=== PATIENT | male | born 1975 | race Caucasian/White ===

== ENCOUNTER 2018-12-24 10:10 | Inpatient (IN) | payer OTHER, MEDICAID ==
[~2018-12-24] VITALS: Ht 165.1 cm; Wt 65.8 kg
[2018-12-24 11:05] LABS: HEMOGLOBIN. 10.4 g/dL (14.0-18.0); MEAN CORPUSCULAR HEMOGLOBIN 31.2 pg (28.0-32.0); MEAN CORPUSCULAR VOLUME 90.4 fL (80.0-94.0); PLATELET 669 x1000/uL (130-400); RED BLOOD CELL COUNT 3.32 mill/uL (4.7-6.1); RED CELL DISTRIBUTION WIDTH 12.9 % (11.6-14.6)
[2018-12-24 11:10] LABS: CHLORIDE 86 mEq/L (98-107)
[2018-12-24 11:11] LABS: INR 1.2; PARTIAL THROMBOPLASTIN TIME 33.8 sec (23.4-31.0); PROTHROMBIN TIME 11.9 sec (9.6-11.0)
[2018-12-24] MEDS ORDERED: MORPHINE SULFATE 4 MG/ML CPJ (NOT FOR IM USE) IV STA (11:14)
[2018-12-24] MEDS ORDERED: ONDANSETRON HCL 4MG/2ML INJ IV STA (11:14)
[2018-12-24] MEDS ORDERED: ASPIRIN 81MG TABLET PO ONE (11:15)
[2018-12-24] MEDS ORDERED: NITROGLYCERIN OINT 1GM/INCH UDPKT TD ONE (11:15)
[2018-12-24] MEDS ORDERED: FUROSEMIDE 40MG/4ML VIAL IV ONE (11:15)
[2018-12-24] MEDS ORDERED: INSULIN REGULAR (HUMULIN R) 300UNITS/3ML IV ONE (11:15)
[2018-12-24] MEDS ORDERED: SODIUM CHLORIDE 0.9% 1,000 ML IV ONE (11:32)
[2018-12-24] MEDS ORDERED: ALBUMIN HUMAN 25GM/100ML (25%) IV ONE (11:45)
[2018-12-24] MEDS ORDERED: VANCOMYCIN 1 G PREMIX 200 ML IV SCH (11:45)
[2018-12-24] MEDS: SODIUM CHLORIDE 0.9% 1,000 ML IV SCH ×2 (11:49→21:17)
[2018-12-24 11:58] LABS: PLATELET ESTIMATE INCREASED
[2018-12-24] MEDS ORDERED: MAGNESIUM/ALUMINUM HYDROXIDE/SIMETHICONE 30ML UDC PO PRN (12:00)
[2018-12-24] MEDS ORDERED: DEXTROSE 50% WATER 50ML SYRINGE IV PRN (12:00)
[2018-12-24] MEDS ORDERED: ONDANSETRON HCL 4MG/2ML INJ IV PRN (12:00)
[2018-12-24] MEDS ORDERED: CLONIDINE 0.1MG TABLET PO PRN (12:00)
[2018-12-24] MEDS ORDERED: GUAIFENESIN 200MG/10ML SUGAR FREE UDC PO PRN (12:00)
[2018-12-24] MEDS ORDERED: IPRATROPIUM/ALBUTEROL 0.5-3(2.5)MG/3ML NEB INH PRN (12:00)
[2018-12-24 12:04] LABS: CLARITY URINE CLEAR (CLEAR); COLOR URINE YELLOW (YELLOW); KETONES URINE 2+ (NEGATIVE); LEUKOCYTE ESTERASE URINE NEGATIVE (NEGATIVE); NITRITE URINE NEGATIVE (NEGATIVE); OCCULT BLOOD URINE NEGATIVE (NEGATIVE); PH URINE 6.5 (4.5-8.0); PROTEIN URINE NEGATIVE (NEGATIVE); SPECIFIC GRAVITY URINE 1.013 (1.005-1.030); UROBILINOGEN URINE 0.2 E.U./dL (0.2-1.0)
[2018-12-24 12:09] LABS: ETHANOL BLOOD < 10 mg/dL
[2018-12-24 12:15] LABS: *BARBITURATES SCREEN URINE NEGATIVE (NEGATIVE)
[2018-12-24 12:16] LABS: T4 FREE 1.08 ng/dL (0.76-1.46)
[2018-12-24 12:16] LABS: *AMPHETAMINES SCREEN URINE NEGATIVE (NEGATIVE); *BENZODIAZEPINES SCREEN URINE NEGATIVE (NEGATIVE); *COCAINE SCREEN URINE NEGATIVE (NEGATIVE); METHADONE URINE SCREEN NEGATIVE (NEGATIVE); OPIATES URINE SCREEN NEGATIVE (NEGATIVE)
[2018-12-24 12:17] LABS: CANNABINOID URINE SCREEN NEGATIVE (NEGATIVE); PHENCYCLIDINE URINE SCREEN NEGATIVE (NEGATIVE)
[2018-12-24] MEDS ORDERED: POTASSIUM CHLORIDE 20MEQ TABLET SR PO SCH (12:30)
[2018-12-24 12:41] LABS: VITAMIN B12 SERUM > 2000.0 pg/mL (211-911)
[2018-12-24 16:22] LABS: SODIUM URINE RANDOM 6 mEq/L
[2018-12-24 16:39] LABS: CREATINE KINASE 228 IU/L (39-308)
[2018-12-24 16:40] LABS: CREATINE KINASE MB FRACTION 1.5 ng/mL (0.5-3.6)
[2018-12-24] MEDS ORDERED: ENOXAPARIN 40MG/0.4ML SYR SUBCUT NR (17:15)
[2018-12-24 20:00] VITALS: BP_SYST 106; BP_SYST 109; BP_DIAS 61; BP_DIAS 66
[2018-12-24] MEDS: INSULIN LISPRO 100 UNITS/ML SUBCUT SCH (21:35)
[2018-12-24] MEDS: BLOOD SUGAR DIAGNOSTIC STRIP TEST SCH (21:36)
[2018-12-24] MEDS ORDERED: CLINDAMYCIN 600 MG in DEXTROSE 5% WATER 50 ML IV SCH (22:00)
[2018-12-24] MEDS ORDERED: INSULIN GLARGINE UD 100 UNITS/ML SYR SUBCUT SCH (22:00)
[2018-12-24] MEDS: ACETAMINOPHEN 325MG TABLET PO PRN (23:30)
[2018-12-24] MEDS: CLINDAMYCIN 600MG PREMIX 50 ML IV SCH (23:31)
[2018-12-25] VITALS (7 sets, daily range): BP systolic 92–136; BP diastolic 56–80
[2018-12-25 01:00] LABS: CREATINE KINASE 155 IU/L (39-308)
[2018-12-25 01:01] LABS: CREATINE KINASE MB FRACTION < 1.0 ng/mL (0.5-3.6)
[2018-12-25] MEDS ORDERED: GLIP5TAB12 MT (01:09)
[2018-12-25] MEDS ORDERED: TRAM50TA MT (01:15)
[2018-12-25] MEDS ORDERED: METF-416 MT (01:15)
[2018-12-25] MEDS ORDERED: IBUP-2030 MT (01:15)
[2018-12-25] MEDS ORDERED: BACL-141 PO (01:15)
[2018-12-25 06:27] LABS: HEMATOCRIT. 28.5 % (42.0-52.0); HEMOGLOBIN. 9.7 g/dL (14.0-18.0); MEAN CORPUSCULAR HEMOGLOBIN 30.6 pg (28.0-32.0); MEAN PLATELET VOLUME 6.4 fl (7.4-10.4); PLATELET 688 x1000/uL (130-400); RED BLOOD CELL COUNT 3.17 mill/uL (4.7-6.1); RED CELL DISTRIBUTION WIDTH 13.3 % (11.6-14.6)
[2018-12-25 06:47] LABS: CHLORIDE 96 mEq/L (98-107)
[2018-12-25 06:52] LABS: PHOSPHORUS 2.1 mg/dL (2.5-4.9)
[2018-12-25] MEDS: BLOOD SUGAR DIAGNOSTIC STRIP TEST SCH ×4 (07:31→20:43)
[2018-12-25] MEDS: INSULIN LISPRO 100 UNITS/ML SUBCUT SCH ×4 (07:50→20:48)
[2018-12-25] MEDS: CLINDAMYCIN 600MG PREMIX 50 ML IV SCH ×3 (07:54→22:08)
[2018-12-25] MEDS ORDERED: POTASSIUM CHLORIDE 20MEQ/PACKET PO ONE (09:00)
[2018-12-25] MEDS: SODIUM CHLORIDE 0.9% 1,000 ML IV SCH ×2 (09:00→22:46)
[2018-12-25] MEDS: ENOXAPARIN 40MG/0.4ML SYR SUBCUT SCH (09:20)
[2018-12-25] MEDS ORDERED: POTASSIUM PHOS,M-BASIC-D-BASIC 15 MMOL in DEXT 5% WATER 245 ML IV SCH (10:00)
[2018-12-25] MEDS: ACETAMINOPHEN 325MG TABLET PO PRN ×2 (10:48→20:43)
[2018-12-25 13:16] LABS: NUCLEATED RED BLOOD CELLS 2 /100 WBC
[2018-12-25 13:17] LABS: PLATELET ESTIMATE MARKEDLY INCREASED
[2018-12-25] MEDS ORDERED: POTASSIUM CHLORIDE INJ 40 MEQ in DEXT 5% WATER 250 ML IV SCH (14:00)
[2018-12-25] MEDS ORDERED: INSULIN GLARGINE UD 100 UNITS/ML SYR SUBCUT SCH (22:00)
[2018-12-26 03:50] VITALS: BP 118/55
[2018-12-26] MEDS: CLINDAMYCIN 600MG PREMIX 50 ML IV SCH (06:21)
[2018-12-26] MEDS: BLOOD SUGAR DIAGNOSTIC STRIP TEST SCH ×2 (06:50→12:20)
[2018-12-26 08:00] VITALS: BP 116/71
[2018-12-26] MEDS ORDERED: VANCOMYCIN 1 G PREMIX 200 ML IV ONE (08:30)
[2018-12-26] MEDS: INSULIN LISPRO 100 UNITS/ML SUBCUT SCH ×2 (08:53→13:32)
[2018-12-26] MEDS: ACETAMINOPHEN 325MG TABLET PO PRN (08:54)
[2018-12-26] MEDS: ENOXAPARIN 40MG/0.4ML SYR SUBCUT SCH (08:55)
[2018-12-26 09:20] LABS: BASOPHILS % 0.2 % (0.0-2.0); EOSINOPHILS % 0.3 % (0.0-5.0); HEMATOCRIT. 27.9 % (42.0-52.0); HEMOGLOBIN. 9.5 g/dL (14.0-18.0); LYMPHOCYTES % 7.6 % (20.0-50.0); MEAN CORPUSCULAR HEMOGLOBIN 30.4 pg (28.0-32.0); MEAN CORPUSCULAR VOLUME 89.6 fL (80.0-94.0); MONOCYTES % 8.9 % (2.0-8.0); PLATELET 580 x1000/uL (130-400); RED BLOOD CELL COUNT 3.11 mill/uL (4.7-6.1); RED CELL DISTRIBUTION WIDTH 13.3 % (11.6-14.6)
[2018-12-26 09:29] LABS: CHLORIDE 92 mEq/L (98-107)
[2018-12-26 09:38] LABS: PHOSPHORUS 2.4 mg/dL (2.5-4.9)
[2018-12-26] MEDS ORDERED: VANCOMYCIN 1250MG in DEXTROSE 5% WATER 250ML IV SCH (10:00)
[2018-12-26] MEDS ORDERED: POTASSIUM CHLORIDE 20MEQ TABLET SR PO NR ×2 (10:30→15:30)
[2018-12-26] MEDS ORDERED: POTASSIUM-SODIUM PHOSPHATE POWDER PACKET PO NR (10:30)
[2018-12-26] MEDS ORDERED: AMPICILLIN 1,000 MG in SODIUM CHLORIDE 0.9% 50 ML IV SCH (11:30)
[2018-12-26 11:40] VITALS: BP 102/46
[2018-12-26 14:57] VITALS: BP 124/78
[2018-12-26 15:36] VITALS: BP 117/71
== END 2018-12-26 17:25 | disposition home or self-care (01) | DRG 720 ==
LOC: ER 10:10 → 6EST 11:35 → EDBEDREQTM 11:50 → EDBEDREQSVC 11:50 → ENRESERV 18:06
PROVIDERS: ADMIT Internal Medicine; ATTEND Internal Medicine
DX: A41.50 Gram-negative sepsis, unspecified (principal); E43 Unspecified severe protein-calorie malnutrition; E83.39 Other disorders of phosphorus metabolism; E87.1 Hypo-osmolality and hyponatremia; D64.9 Anemia, unspecified; E11.9 Type 2 diabetes mellitus without complications; K76.9 Liver disease, unspecified; E87.6 Hypokalemia; F10.20 Alcohol dependence, uncomplicated; R60.1 Generalized edema; R79.89 Other specified abnormal findings of blood chemistry; R07.9 Chest pain, unspecified; Z82.49 Family history of ischemic heart disease and other diseases of the circulatory system; Z83.3 Family history of diabetes mellitus; Z87.891 Personal history of nicotine dependence; Z68.24 Body mass index [BMI] 24.0-24.9, adult
CPT/HCPCS: 36415; 71045; 76700; 80048; 80305; 80320; 82533; 82550; 82553; 82607; 82746; 82962; 83036; 83735; 83880; 83930; 83935; 84100; 84300; 84439; 84443; 84484; 87077; 87186; 93005; 93970; 96365; 96366; 96375; 97162; 99291; C1893; J0290; J1650; J1815; J1940; J2270; J2405; J3370; J3480; J3490; J7030; J7060; P9047; G0480